=== PATIENT | female | born 1990 | race Caucasian/White ===

== ENCOUNTER 2024-09-08 14:08 | Outpatient (AMB) | payer BC, SELFPAY ==
--- NOTE | 2024-09-08 12:03 | A.OFFPC_ITS ---
Vital Signs 09/08/24 14:16 Weight 197 lb 8 oz BP 122/86 Blood Pressure Location Rt brachial Position Sitting Pulse 86 Pulse Source Pulse Oximeter Pulse Oximetry (%) 97 Oxygen Delivery Method Room Air Intake Visit Reasons: Est / Care from [facility] Intake Note: New patient visit Clerk Checker Required: No Allergies No Known Allergies Allergy (Verified 09/08/24 12:03) Tobacco use date assessed: 09/08/24 Dental Screening Dental Screen Date: 09/08/24 Did you have a dental visit in the last 12 months?: Yes Did you have a dental problem in the last 6 months where you did not have access to dental care?: No Was dental information given to patient?: Patient has dentist HPI HPI Comments History of Present Illness Details The patient is a 34-year-old female with a history of attention disorder, headaches presenting for follow-up Headache: Follows Neurology. Underwent physical therapy which helped with both frequency and severity. She 1st began to experience headaches school. Prior to physical therapy she was getting frequent and severe headaches. Her headaches can last 12-18 hours. Start with tension in the neck. They are usually unilateral, mostly right-sided and worst in the temporal area. They throb. She has had neuralgia/neuritis down the right side of the face the jaw at times. Patient is post . She had issues with preeclampsia and delivered early. Baby is at home and doing well. Denisse unfortunately had COVID, had fevers, had blood culture positive for nitin-required inpatient and outpatient antifungal therapy. She feels back to normal. ROS CONSTITUTIONAL: Denies weight loss, fever and chills. HEENT: Denies changes in vision and hearing. RESPIRATORY: Denies SOB and cough. CV: Denies palpitations and CP GI: Denies abdominal pain, nausea, vomiting and diarrhea. : Denies dysuria and urinary frequency. MSK: Denies new myalgia and joint pain. SKIN: Denies rash and pruritus. NEUROLOGICAL: Denies headache PSYCHIATRIC: Denies recent changes in mood. PHYSICAL EXAM: GENERAL: Alert and oriented x 3. NAD EYES: EOMI. Anicteric. HENT: Moist mucous membranes. No scleral icterus. No cervical lymphadenopathy. LUNGS: Clear to auscultation bilaterally. CARDIOVASCULAR: Regular rate and rhythm. No murmur. No JVD. ABDOMEN: Soft, non-tender +bs EXTREMITIES: No edema. Non-tender. SKIN: No rashes or lesions. Warm. NEUROLOGIC: No focal neurological deficits. CN II-XII grossly intact PSYCHIATRIC: Cooperative. 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 Current occupational exposures/hazards: No Cognitive needs: No Hearing needs: No Vision needs: No Questionnaire Thrive Questionnaire Date Thrive assessed: 09/01/24 I am a: Patient What is your living situation today?: I have a steady place to live Within the past 12 months, did the food you bought not last and you didn't have the money to get more?: Never true Within the past 12 months, did you worry whether your food would run out before you got money to buy more?: Never true Do you have trouble paying for medicines?: No Do you have trouble getting transportation to medical appointments?: No Do you have trouble paying your heating and electricity bill?: No Do you have trouble taking care of your child, family member or friend?: No Do you have trouble with day-to-day activities such as bathing, preparing meals, shopping, managing finances, etc.?: No Are you currently unemployed and looking for a job?: No Are you interested in more education?: No Please select the resources that you would like help with: None Currently or been in a relationship where the following occur: No concerns reported THRIVE Score: 0 AUDIT C Alcohol Use Questionnaire (AUDIT-C) 1. How often do you have a drink containing alcohol?: Monthly or less 2. How many drinks containing alcohol do you have on a typical day when you are drinking?: 1 or 2 3. How often do you have six or more drinks on one occasion?: Never Total Score: 1 GEORGETTE-7 AMB Questionnaire GEORGETTE-7 Feeling nervous, anxious, or on edge: 0 = Not at all Not being able to stop or control worryin = Not at all Worrying too much about different things: 0 = Not at all Trouble relaxin = Not at all Being so restless that it is hard to sit still: 0 = Not at all Becoming easily annoyed or irritable: 0 = Not at all Feeling afraid as if something awful might happen: 0 = Not at all Total GEORGETTE-7 score (0-4 normal; 5-9 mild; 10-14 moderate; 15-21 severe): 0 Source: Developed by Drs. Phi Galicia, Tisha Barboza, Yazan Schwartz and colleagues, with an educational roldan from [employer]. Physical exam (Primary Care) Vital Signs: Last Vital Signs Pulse 86 09/08/24 14:16 BP 122/86 09/08/24 14:16 Pulse Ox 97 09/08/24 14:16 Oxygen Delivery Method Room Air 09/08/24 14:16 Tobacco/Smoking Status: Tobacco use Status Tobacco use date assessed 09/08/24 09/08/24 12:09 Patient Tobacco Use Status Never used Tobacco 09/08/24 14:18 e-Cigarette/Vaping Use Never Used 09/08/24 14:18 Thrive Assessment: Date of Thrive Assessment Date Thrive assessed 09/01/24 09/08/24 12:09 Currently or been in a relationship where the following occur: No concerns reported Coding Level of Care Code Est Pt Level 4 (81632) Complex EM visit Add On G2211 Diagnoses Anemia D64.9 complication O90.89 Septicemia A41.9 Assessment & Plan Assessment & Plan (1) Anemia: Code(s): D64.9 - Anemia, unspecified Category: Medical Plan: recheck labs. (2) complication: Code(s): O90.89 - Other complications of the puerperium, not elsewhere classified Category: Medical Plan: Feels back to baseline. Will check labs Has been afebrile (3) Septicemia: Code(s): A41.9 - Sepsis, unspecified organism Category: Medical Plan: see above Plan Headaches/migraines are stable Orders: Orders Complete Blood Count Auto Diff 09/08/24 A41.9 - Sepsis, unspecified organism, O90.89 - Other complications of the puerperium, not elsewhere classified Comprehensive Met. Panel 09/08/24 A41.9 - Sepsis, unspecified organism, O90.89 - Other complications of the puerperium, not elsewhere classified IRON PROFILE 09/08/24 O90.89 - Other complications of the puerperium, not elsewhere classified, A41.9 - Sepsis, unspecified organism, D64.9 - Anemia, unspecified
[2024-09-08 14:16] VITALS: BP 122/86; PULSE 86; O2SAT 97
== END 2024-09-08 15:17 | disposition home or self-care (01) ==
PROVIDERS: Visit Provider Internal Medicine
DX: D64.9 Anemia, unspecified (principal); O90.89 Other complications of the puerperium, not elsewhere classified; A41.9 Sepsis, unspecified organism

== ENCOUNTER 2024-09-08 15:12 | Outpatient (REF) | payer BC, SELFPAY ==
[2024-09-08 17:50] LABS: MANUAL DIFF FLAG NO
[2024-09-08 17:55] LABS: Basophils Percent Auto 0.4 % (0-2); Eosinophils Absolute Auto 0.1 X10*3/uL (0.0-0.4); Eosinophils Percent Auto 1.5 % (0-4); Hematocrit 37.9 % (37.0-47.0); Hemoglobin 12.6 g/dl (12.0-16.0); Imm Gran Abs Auto 0.02 X10*3/uL (0.00-0.03); Imm Gran Pct Auto 0.3 % (0.0-0.4); Lymphocytes Absolute Auto 2.8 X10*3/uL (1.2-4.9); Mean Corpuscular HGB Conc 33.2 g/dl (31.0-35.0); Mean Corpuscular Hemoglobin 28.4 pg (27.0-33.0); Mean Corpuscular Volume 85.6 fL (80.0-98.0); Monocytes Absolute Auto 0.4 X10*3/uL (0.1-1.2); Monocytes Percent Auto 5.2 % (2-11); Neutrophils Percent Auto 54.6 % (45-73); Platelet Count 284 X10*3/uL (160-400); Red Blood Count 4.43 X10*6/uL (4.20-5.50); Red Cell Distribution Width 13.2 % (11.0-16.0); White Blood Count 7.4 X10*3/uL (4.8-10.8)
[2024-09-08 18:06] LABS: Alanine Aminotransferase 32 U/L (0-31); Albumin Level 4.4 g/dL (3.5-5.0); Alkaline Phosphatase 91 U/L (39-117); Anion Gap 11 (12-20); Aspartate Amino Transferase 25 U/L (5-31); Bilirubin Total 0.4 mg/dL (0.0-1.0); Blood Urea Nitrogen 14 mg/dL (9-16); Calcium 9.7 mg/dL (8.4-10.2); Carbon Dioxide 25 mmol/L (22-29); Chloride 105 mmol/L (96-108); Estimated Glomerular Filt Rate > 60; Glucose Random 85 mg/dL (60-115); Iron 48 mcg/dL (30-160); Percent Iron Saturation 18 % (15-50); Potassium 3.9 mmol/L (3.3-5.1); Sodium 137 mmol/L (135-145); Total Iron Binding Capacity 263 mcg/dL (228-428); Total Protein 7.6 g/dL (6.5-8.0); Unsaturated Iron Binding 215 ug/dL
== END 2024-09-08 15:13 | disposition home or self-care (01) ==
LOC: HO.WFDLDS 15:12
PROVIDERS: Visit Provider Internal Medicine
DX: A41.9 Sepsis, unspecified organism (principal); O90.89 Other complications of the puerperium, not elsewhere classified; D64.9 Anemia, unspecified
CPT/HCPCS: 36415; 80053; 83540; 85025

== ENCOUNTER 2024-10-27 09:48 | Outpatient (AMB) | payer BC, SELFPAY ==
--- NOTE | 2024-10-27 10:35 | A.OFFPC_ITS ---
Vital Signs 10/27/24 10:38 Weight 195 lb BP 112/72 Blood Pressure Location Rt brachial Position Sitting Pulse 60 Pulse Source Pulse Oximeter Pulse Oximetry (%) 98 Oxygen Delivery Method Room Air Intake Visit Reasons: Physical Exam Intake Note: Physical Coil Winder Repair Required: No Allergies No Known Allergies Allergy (Verified 09/08/24 12:03) Tobacco use date assessed: 09/08/24 Dental Screening Dental Screen Date: 09/08/24 HPI HPI Comments History of Present Illness Details The patient is a 34-year-old female with a history of attention disorder, headaches presenting for follow-up Headache: Follows Neurology. stable Underwent physical therapy which helped with both frequency and severity. She 1st began to experience headaches school. Prior to physical therapy she was getting frequent and severe headaches. Her headaches can last 12-18 hours. Start with tension in the neck. They are usually unilateral, mostly right-sided and worst in the temporal area. They throb. She has had neuralgia/neuritis down the right side of the face the jaw at times. Patient is post . She had issues with preeclampsia and delivered early. Baby is at home and doing well. Denisse unfortunately had COVID, had fevers, had blood culture positive for nitin-required inpatient and outpatient antifungal therapy. She feels back to normal. She dropped a decoration on her second right toe. The toenail is still bruised. There was scant pus but this went away with topical antibiotic. Pain has subsided. History of hyperlipidemia. Requests lipids Public Area Supervisor: UTD. Has IUD in place ROS CONSTITUTIONAL: Denies weight loss, fever and chills. HEENT: Denies changes in vision and hearing. RESPIRATORY: Denies SOB and cough. CV: Denies palpitations and CP GI: Denies abdominal pain, nausea, vomiting and diarrhea. : Denies dysuria and urinary frequency. MSK: Denies new myalgia and joint pain. SKIN: see HPI NEUROLOGICAL: Denies headache PSYCHIATRIC: Denies recent changes in mood. PHYSICAL EXAM: GENERAL: Alert and oriented x 3. NAD EYES: EOMI. Anicteric. HENT: Moist mucous membranes. No scleral icterus. No cervical lymphadenopathy. LUNGS: Clear to auscultation bilaterally. CARDIOVASCULAR: Regular rate and rhythm. No murmur. No JVD. ABDOMEN: Soft, non-tender +bs EXTREMITIES: No edema. Non-tender. SKIN: No rashes or lesions. Warm. NEUROLOGIC: No focal neurological deficits. CN II-XII grossly intact PSYCHIATRIC: Cooperative. 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 1. Little interest or pleasure in doing things: not at all 2. Feeling down, depressed, or hopeless: not at all 3. Trouble falling or staying asleep, or sleeping too much: not at all 4. Feeling tired or having little energy: not at all 5. Poor appetite or overeating: not at all 6. Feeling bad about yourself - or that you are a failure or have let yourself or your family down: not at all 7. Trouble concentrating on things, such as reading the newspaper or watching television: not at all 8. Moving or speaking so slowly that other people could have noticed. Or the opposite - being so fidgety or restless that you have been moving around a lot more than usual: not at all 9. Thoughts that you would be better off or of hurting yourself in some way: not at all Total score: 0 Depression Screening Interpretation: Negative Depression Screening Done: Yes 27609 - PHQ-9 Billing: Yes Source: Developed by Drs. Phi Galicia, Tisha Barboza, Yazan Schwartz and colleagues, with an educational roldan from [employer]. Thrive Questionnaire Date Thrive assessed: 10/20/24 I am a: Patient What is your living situation today?: I have a steady place to live Within the past 12 months, did the food you bought not last and you didn't have the money to get more?: Never true Within the past 12 months, did you worry whether your food would run out before you got money to buy more?: Never true Do you have trouble paying for medicines?: No Do you have trouble getting transportation to medical appointments?: No Do you have trouble paying your heating and electricity bill?: No Do you have trouble taking care of your child, family member or friend?: No Do you have trouble with day-to-day activities such as bathing, preparing meals, shopping, managing finances, etc.?: No Are you currently unemployed and looking for a job?: No Are you interested in more education?: No Please select the resources that you would like help with: None Currently or been in a relationship where the following occur: No concerns reported THRIVE Score: 0 AUDIT C Alcohol Use Questionnaire (AUDIT-C) 1. How often do you have a drink containing alcohol?: Monthly or less 2. How many drinks containing alcohol do you have on a typical day when you are drinking?: 1 or 2 3. How often do you have six or more drinks on one occasion?: Never Total Score: 1 GEORGETTE-7 AMB Questionnaire GEORGETTE-7 Date GEORGETTE - 7 assessed: 10/27/24 Feeling nervous, anxious, or on edge: 0 = Not at all Not being able to stop or control worryin = Not at all Worrying too much about different things: 0 = Not at all Trouble relaxin = Not at all Being so restless that it is hard to sit still: 0 = Not at all Becoming easily annoyed or irritable: 0 = Not at all Feeling afraid as if something awful might happen: 0 = Not at all Total GEORGETTE-7 score (0-4 normal; 5-9 mild; 10-14 moderate; 15-21 severe): 0 Source: Developed by Drs. Phi Galicia, Tisha Barboza, Yazan Schwartz and colleagues, with an educational roldan from [employer]. GEORGETTE-7 Assessment Billing GEORGETTE-7 Assessment Tool: GEORGETTE-7 Assessment 27154 Physical exam (Primary Care) Vital Signs: Last Vital Signs Pulse 60 10/27/24 10:38 BP 112/72 10/27/24 10:38 Pulse Ox 98 10/27/24 10:38 Oxygen Delivery Method Room Air 10/27/24 10:38 Tobacco/Smoking Status: Tobacco use Status Tobacco use date assessed 09/08/24 10/27/24 10:39 Patient Tobacco Use Status Never used Tobacco 10/27/24 10:41 e-Cigarette/Vaping Use Never Used 10/27/24 10:41 PHQ-9: PHQ-9 Score PHQ-9: Total score 0 10/27/24 10:41 Depression Screening Interpretation: Negative Thrive Assessment: Date of Thrive Assessment Date Thrive assessed 10/20/24 10/27/24 10:39 Currently or been in a relationship where the following occur: No concerns reported Coding Level of Care Code Est Pt Prev Care 18-39y(20406) Diagnoses Physical exam Z00.00 Pure hypercholesterolemia E78.00 Hyperlipidemia type: pure hypercholesterolemia Additional Codes GEORGETTE-7 Assessment Billing - GEORGETTE-7 Assessment Tool: GEORGETTE-7 Assessment 15311 ([id number]) PHQ-9 - 79381 - PHQ-9 Billing: Yes ([id number]) Assessment & Plan Assessment & Plan (1) Physical exam: Code(s): Z00.00 - Encounter for general adult medical examination without abnormal findings Category: Medical Plan: Preventive measures for age reviewed Lipids ordered Declines flu vaccination (2) Hyperlipidemia: Code(s): E78.5 - Hyperlipidemia, unspecified Category: Medical Qualifiers: Hyperlipidemia type: pure hypercholesterolemia Qualified Code(s): E78.00 - Pure hypercholesterolemia, unspecified Plan: Lipids ordered. Orders: Orders Lipid Panel Today E78.5 - Hyperlipidemia, unspecified, F53.0 - depression TSH reflex Free T4 Today E78.5 - Hyperlipidemia, unspecified, F53.0 - depression
[2024-10-27 10:38] VITALS: BP 112/72; PULSE 60; O2SAT 98
== END 2024-10-27 10:56 | disposition home or self-care (01) ==
PROVIDERS: PCP Internal Medicine; Visit Provider Nurse Practitioner Family
DX: Z00.00 Encounter for general adult medical examination without abnormal findings (principal); E78.00 Pure hypercholesterolemia, unspecified

== ENCOUNTER → 2024-10-27 09:48 | Outpatient (BNVA) | payer BC, SELFPAY | PROVIDERS: PCP Internal Medicine; Visit Provider Nurse Practitioner Family | DX: Z00.00 Encounter for general adult medical examination without abnormal findings (principal); E78.5 Hyperlipidemia, unspecified; R51.9 Headache, unspecified; Z28.21 Immunization not carried out because of patient refusal | CPT/HCPCS: 96127 ==